=== PATIENT | female | born 1960 | race Caucasian/White ===

== ENCOUNTER 2017-08-31 14:42 | Outpatient (RCR) | payer MEDICARE | END 2017-09-25 | LOC: OT 14:42 | PROVIDERS: ATTEND Surgery Surgery of the Hand | DX: M18.0 Bilateral primary osteoarthritis of first carpometacarpal joints (principal); M79.642 Pain in left hand; M79.641 Pain in right hand | CPT/HCPCS: L3808 ×2 ==